=== PATIENT | female | born 1995 | race Hispanic/Latino ===

== ENCOUNTER 2023-06-28 19:24 | Emergency (ER) | payer SELFPAY ==
--- NOTE | 2023-06-28 19:46 | EDPHYS ---
Physician Documentation [facility] Name: Lissett Novak Age: 27 yrs Sex: Female : 1995 Arrival Date: 06/28/2023 Time: 19:24 Bed 10 Private MD: ED Physician Paulino Harrison HPI: 06/27 19:38 This 27 yrs old Female presents to ER via Unassigned with complaints of kb Toothache. 19:38 Pt is a 27 year old female who presents for toothache that started a couple of weeks kb ago. States she has a broken tooth with exposed nerve that has been causing the pain. Went to the dentist 2 weeks ago and was given amoxicillin and ibuprofen, but pain persists. Has appt for follow up with dentist next week. Historical: - Allergies: 19:53 No Known Allergies; pf1 - PMHx: 19:53 None; pf1 - PSHx: 19:53 Cholecystectomy; pf1 - Immunization history:: Adult Immunizations not up to date, Client reports receiving the 1st dose of the Covid vaccine, Last tetanus immunization: > 10 years ago Flu vaccine is not up to date. - Infectious Disease History:: Denies. - Social history:: Smoking status: Reported history of juuling and/or vaping. Patient uses alcohol, only on a social basis. Patient/guardian denies using street drugs. ROS: 19:42 Constitutional: As per HPI kb Exam: 19:42 Constitutional: This is a well developed, well nourished patient who is awake, alert, kb and in no acute distress. Head/Face: Normocephalic, atraumatic. Cardiovascular: Regular rate Respiratory: Respirations even and unlabored. No increased work of breathing. Talking in full sentences Skin: Warm, dry with normal turgor. Normal color. MS/ Extremity: Pulses equal, no cyanosis. Neurovascular intact. Full, normal range of motion. Neuro: Awake and alert, GCS 15, oriented to person, place, time, and situation. Moves all extremities. Normal gait. 19:42 ENT: Dental exam: pain, that is severe, specifically in the lower left second molar (#18), Vital Signs: 19:48 BP 136 / 87; Pulse 83; Resp 16; Temp 98.3; Pulse Ox 100% ; Weight 81.65 kg; Height 5 pf1 ft. 2 in. ; Pain 10/10; 19:48 Body Mass Index 32.92 (81.65 kg, 157.48 cm) pf1 19:48 Pain Scale: Adult pf1 MDM: 19:27 Patient medically screened. kb 19:42 Differential diagnosis: dental caries, gingivitis, dental abscess. Data reviewed: vital kb signs, nurses notes. Historians other than the Patient: Family Member: boyfriend. Counseling: I had a detailed discussion with the patient and/or guardian regarding the historical points, exam findings, and any diagnostic results supporting the discharge/admit diagnosis, the need for outpatient follow up, a dentist, to return to the emergency department if symptoms worsen or persist or if there are any questions or concerns that arise at home. Administered Medications: 19:53 Drug: Derby PO 10 mg-325 mg 1 tabs PO once Route: PO; mb9 19:58 Follow up: Response: No adverse reaction; Marked relief of symptoms; Pain is decreased; pf1 RASS: Alert and Calm (0) 19:54 Not Given (Other Intervention Used): [id number] mg IVP once mb9 19:54 Drug: Ketorolac IM 15 mg IM once Route: IM; Site: right deltoid; mb9 19:58 Follow up: Response: No adverse reaction; Marked relief of symptoms pf1 Disposition Summary: 06/28/23 19:45 Discharge Ordered Notes: Location: Home kb Condition: Stable kb Diagnosis - Toothache kb Followup: kb - With: Emergency Department - When: As needed - Reason: Worsening of condition Followup: kb - With: Private Physician - When: 2 - 3 days - Reason: Recheck today's complaints, Continuance of care, Re-evaluation by your physician Discharge Instructions: - Discharge Summary Sheet kb - Dental Pain, [id number] kb - Tooth Injuries, [id number] kb Forms: - Medication Reconciliation Form kb - Antibiotic Education kb - Prescription Opioid Use kb - Patient Portal Instructions kb - Leadership Thank You Letter kb Prescriptions: - Diclofenac Sodium 75 mg Oral tablet, delayed release (enteric coated) - take 1 tablet ORAL route 2 times per day As needed; 30 tablet; Refills: 0, kb Product Selection Permitted Signatures: Summer Beltran, CHRIS MATHEWS-Millie José RN RN mb9 Lux, Elham, RN RN pf1
[2023-06-28] MEDS ORDERED: HYDROCODONE/APAP 10/325 TAB ONE (19:49)
[2023-06-28] MEDS ORDERED: KETOROLAC 30 MG/ML INJ ONE (19:49)
--- NOTE | 2023-06-28 19:59 | ER ---
Nurse's Notes [facility] Name: Lissett Novak Age: 27 yrs Sex: Female : 1995 Arrival Date: 06/28/2023 Time: 19:24 Bed 10 Private MD: Diagnosis: Toothache Presentation: 06/27 19:48 Chief complaint: Patient states: left bottom tooth pain of 10,onset 3 weeks ago. pf1 Patient stated has a follow up with a dentist in two weeks. Coronavirus screen: Vaccine status: Patient reports receiving the 1st dose of the Covid vaccine. Client denies travel out of the [place] in the last 14 days. At this time, the client does not indicate any symptoms associated with coronavirus-19. Ebola Screen: Patient negative for fever greater than or equal to 101.5 degrees Fahrenheit, and additional compatible Ebola Virus Disease symptoms. Initial Sepsis Screen: Does the patient meet any 2 criteria? No. Patient's initial sepsis screen is negative. Does the patient have a suspected source of infection? No. Patient's initial sepsis screen is negative. Risk Assessment: Do you want to hurt yourself or someone else? Patient reports no desire to harm self or others. Onset of symptoms was June 07, 2023. 19:48 Method Of Arrival: Ambulatory pf1 19:48 Acuity: ELEN 5 pf1 Triage Assessment: 19:54 General: Appears in no apparent distress. uncomfortable, well groomed, well developed, pf1 Behavior is cooperative, appropriate for age, anxious, quiet. Pain: Complains of pain in lower left second molar (#18) Pain currently is 10 out of 10 on a pain scale. EENT: Reports pain in lower left second molar (#18) Pain is 10 out of 10 on a pain scale. Neuro: No deficits noted. Level of Consciousness is awake, alert, obeys commands, Oriented to person, place, time, situation. Cardiovascular: No deficits noted. Capillary refill < 3 seconds Patient's skin is warm and dry. Respiratory: No deficits noted. Airway is patent Respiratory effort is even, unlabored, Respiratory pattern is regular, symmetrical, Breath sounds are clear bilaterally. GI: No deficits noted. No signs and/or symptoms were reported involving the gastrointestinal system. : No deficits noted. No signs and/or symptoms were reported regarding the genitourinary system. Derm: No deficits noted. No signs and/or symptoms reported regarding the dermatologic system. Musculoskeletal: No deficits noted. No signs and/or symptoms reported regarding the musculoskeletal system. Historical: - Allergies: 19:53 No Known Allergies; pf1 - PMHx: 19:53 None; pf1 - PSHx: 19:53 Cholecystectomy; pf1 - Immunization history:: Adult Immunizations not up to date, Client reports receiving the 1st dose of the Covid vaccine, Last tetanus immunization: > 10 years ago Flu vaccine is not up to date. - Infectious Disease History:: Denies. - Social history:: Smoking status: Reported history of juuling and/or vaping. Patient uses alcohol, only on a social basis. Patient/guardian denies using street drugs. Screenin:54 [facility] ED Fall Risk Assessment (Adult) History of falling in the last 3 months, mb9 including since admission No falls in past 3 months (0 pts) Confusion or Disorientation No (0 pts) Intoxicated or Sedated No (0 pts) Impaired Gait No (0 pts) Mobility Assist Device Used No (0 pt) Altered Elimination No (0 pt) Score/Fall Risk Level 0 - 2 = Low Risk Oriented to surroundings, Maintained a safe environment, Educated pt \T\ family on fall prevention, incl call for assistance when getting out of bed. Abuse screen: Denies threats or abuse. Nutritional screening: No deficits noted. Tuberculosis screening: No symptoms or risk factors identified. Assessment: 19:56 Reassessment: see triage assessment. pf1 Vital Signs: 19:48 BP 136 / 87; Pulse 83; Resp 16; Temp 98.3; Pulse Ox 100% ; Weight 81.65 kg; Height 5 pf1 ft. 2 in. ; Pain 10/10; 19:48 Body Mass Index 32.92 (81.65 kg, 157.48 cm) pf1 19:48 Pain Scale: Adult pf1 ED Course: 19:26 Patient arrived in ED. im 19:27 Summer Beltran FNP-C is PHCP. kb 19:27 Paulino Harrison MD is Attending Physician. kb 19:45 Arm band placed on right wrist. pf1 19:47 Millie Hung RN is Primary Nurse. mb9 19:52 Triage completed. pf1 19:54 Adult w/ patient. Client placed on continuous cardiac and pulse oximetry monitoring. mb9 NIBP monitoring applied. 19:54 No provider procedures requiring assistance completed. Patient did not have IV access mb9 during this emergency room visit. 19:59 Provided Education on: prescription. pf1 Administered Medications: 19:53 Drug: Pioneer PO 10 mg-325 mg 1 tabs PO once Route: PO; mb9 19:58 Follow up: Response: No adverse reaction; Marked relief of symptoms; Pain is decreased; pf1 RASS: Alert and Calm (0) 19:54 Not Given (Other Intervention Used): [id number] mg IVP once mb9 19:54 Drug: Ketorolac IM 15 mg IM once Route: IM; Site: right deltoid; mb9 19:58 Follow up: Response: No adverse reaction; Marked relief of symptoms pf1 Medication: 19:55 VIS not applicable for this client. mb9 Outcome: 19:45 Discharge ordered by . kb 19:58 Discharged to home ambulatory, with family, pf1 19:58 Condition: stable 19:58 Discharge instructions given to patient, family, Instructed on discharge instructions, follow up and referral plans. Demonstrated understanding of instructions, follow-up care, medications, Prescriptions given X 1, 19:59 Patient left the ED. pf1 Signatures: Summer Beltran, CHRIS MATHEWS-Millie José RN RN mb9 Elham Lux RN RN pf1 Shakila Green
[2023-06-28 20:10] VITALS: BP 136/87; TEMP 98.3; O2SAT 100
== END 2023-06-28 19:59 | disposition home or self-care (01) ==
LOC: ER 19:24
DX: K08.89 Other specified disorders of teeth and supporting structures (principal)
CPT/HCPCS: 96372; 99284

== ENCOUNTER 2024-07-03 08:46 | Emergency (ER) | payer SELFPAY ==
--- OUTSIDE RECORDS SUMMARY | 2024-07-03 08:50 | XMS REPORT | Continuity of Care Document ---
Author Name Unknown Address [address] [facility] [facility] [address] [place] [address] Organization [facility] [place] Address [address] [facility] [facility] [address] [place] [address] Care Team Providers Care Meter Installer Name Role Phone Ursula HAYES, Sera Primary Care Physician HAM ZAMBRANO Attending Clinician Unavail able HAM ZAMBRANO Attending Clinician Unavail able Ham Zambrano MD Attending Clinician [phone] MATEUS ABDI Attending Clinician Unavailable MATEUS ABDI Attending Clinician Unavailable Mateus Abdi DO Attending Clinician [phone] LEEANNA DAMON Attending Clinician Unavailab Leeanna Potter DO Attending Clinician [phone] Nanda Brady MD Attending Clinician NANDA BRADY Attending Clinician Unavailabl e Problems Condition Name Condition Details Condition Category Status Onset Date Resolution Date Last Treatment Date Treating Clinician Comments Source No known active problems No known active problems Disease [facility] Allergies, Adverse Reactions, Alerts Allergy Name Allergy Type Status Severity Reaction(s) Onset Date Inactive Date Treating Clinician Comments Source NO KNOWN ALLERGIE S Drug Class Active [facility] Social History Social Habit Start Date Stop Date Quantity Comments Source Sexual orientation U [facility] Exposure to SARS-CoV-2 (event) 2022-03-27 00:00:00 2022-04-06 12:26:00 Not sure [facility] Sex assigned at 1995 00:00:00 1995 00:00:00 [facility] Smoking Status Start Date Stop Date Source Tobacco smoking consumption unknown [facility] Medications Ordered Medication Name Filled Medication Name Start Date Stop Date Current Medication? Ordering Clinician Indication Dosage Frequency Signature (SIG) Comments Components Source benzonatate 200 mg capsule 04-09 00:00: 00 Yes 1mg Kenyon Upton ciprofloxac in 0.3 %-dexametha sone 0.1 % ear drops,suspe nsion 04-09 00:00: 00 Yes 1% Kenyon Upton amoxicillin 875 mg-potasszohreh castelan clavulanate 125 mg tablet 04-09 00:00: 00 Yes 1mg Kenyon Upton ondansetron (ZOFRAN-ODT ) disintegrat ing tablet 4 mg 04-03 22:45: 00 04-03 22:35 :00 No 4mg 4 mg, Oral, ONCE, 1 dose, On Sat04/03/24 at 1645, Routine [facility] loperamide (IMODIUM A-D) capsule 4 mg 04-03 22:45: 00 04-03 22:35 :00 No 4mg 4 mg, Oral, ONCE NOW, 1 dose, On Sat04/03/24 at 1645, Routine [facility] dicyclomine (BENTYL) tablet 20 mg 04-03 22:00: 00 04-03 22:35 :00 No 20mg 20 mg, Oral, ONCE, 1 dose, On Sat04/03/24 at 1600, ELROY [facility] dicyclomine 20 mg tablet 04-03 00:00: 00 Yes [id number] 20mg Take 1 tablet by mouth 4 (four) times daily as needed for Abdominal pain. [facility] ondansetron 4 mg disintegrat ing tablet 04-03 00:00: 00 Yes [id number] 4mg Take 1 tablet by mouth every 8 (eight) hours as needed for Nausea and Vomiting (N/V). [facility] amoxicillin 500 mg capsule 2023-02 2-17 00:00: 00 02-11 05:59 :00 No [id number] 500mg Take 1 capsule by mouth in the morning and 1 capsule at noon and 1 capsule in the evening. Do all this for 7 days. [facility] NaCl 0.9% (NS) bolus infusion 1,000 mL 10-01 02:00: 00 10-01 02:33 :00 No 1000mL at 999 mL/hr, 1,000 mL, IV Infusion, ONCE, 1 dose, On Sat10/01/23 at 2100, [facility] ondansetron (ZOFRAN (PF)) injection 4 mg 10-01 01:15: 00 10-01 01:28 :00 No 4mg 4 mg, Slow IV Push, ONCE, 1 dose, On Sat10/01/23 at 2014, [facility] acetaminoph en (TYLENOL) tablet 1,000 mg 10-01 01:15: 00 10-01 01:28 :00 No 1000mg 1,000 mg, Oral, ONCE, 1 dose, On Sat10/01/23 at 2014, [facility] ketorolac (TORADOL) injection 15 mg 10-01 01:05: 00 10-01 01:28 :00 No 15mg 15 mg, Slow IV Push, ONCE, 1 dose, On Sat10/01/23 at 2014, Routine [facility] ibuprofen 600 mg tablet 09-30 00:00: 00 Yes [id number] 600mg Take 1 tablet by mouth every 6 (six) hours as needed for Pain (scale 4-6) for up to 30 doses. [facility] nirmatrelvi r-ritonavir (PAXLOVID) 150-100 mg tablet 09-30 00:00: 00 Yes [id number] 2{tbl} Take 2 tablets by mouth in the morning and 2 tablets in the evening. [facility] penicillin g benzathine (BICILLIN L-A) injection 1.2 Million Units 04-06 19:30: 00 04-06 19:32 :00 No 1.210 1.2 Million Units, Intramuscu lar, ONCE, 1 dose, On Sat04/06/22 at 1330, ELROY
Re ason for Anti-Infec tive: Documented Infection< br>Documen jake Infection Site: HEENT
D uration of Therapy: Other (see Comments) [facility] dexamethaso ne sod phos PF injection 10 mg 04-06 18:30: 00 04-06 18:57 :00 No 10mg 10 mg, Intramuscu lar, ONCE, 1 dose, On Sat04/06/22 at 1230, 1 mL [facility] albuterol 90 mcg/actuati on inhaler 2021-02 0 00:00: 00 Yes [id number] 9104 2{puff} Inhale 2 Puffs every 4 (four) hours as needed for Wheezing or Shortness of Breath. [facility] erythromyci n 5 mg/gram (0.5 %) ophthalmic ointment 2021-02 00:00: 00 Yes [id number] 9104 .5[in_u s] Place 0.5 Inches in both eyes 4 (four) times daily. Continue until you follow up with eye doctor. [facility] amoxicillin -clavulanat e 875-125 mg per tablet 2021-02 00:00: 00 12-22 04:59 :00 No [id number] 9104 1{tbl} Take 1 tablet by mouth in the morning and 1 tablet in the evening. Do all this for 10 days. [facility] predniSONE 20 mg tablet 2021-02 00:00: 00 12-17 04:59 :00 No [id number] 9104 40mg Take 2 tablets by mouth every morning for 5 days. [facility] butalbital- acetaminoph en-caff (ESGIC) 50-325-40 mg tablet 07-25 00:00: 00 Yes 1{tbl} Take 1 tablet by mouth every 4 (four) hours as needed for Headache. [facility] Vital Signs Vital Name Observation Time Observation Value Comments S ource Oxygen saturation in Arterial blood by Pulse oximetry 2024-04-03 23:57:34 100 /min [facility] Systolic blood pressure 2024-04-03 23:57:34 119 mm[Hg] [facility] Diastolic blood pressure 2024-04-03 23:57:34 76 mm[Hg] [facility] Heart rate 2024-04-03 23:57:34 56 /min [facility] Body temperature 2024-04-03 23:57:34 36.83 [place] [facility] Respiratory rate 2024-04-03 23:57:34 16 /min [facility] Body height 2024-04-03 21:55:[address] [facility] Body weight 2024-04-03 21:55:[address] [facility] BMI 2024-04-03 21:55:00 44.92 kg/m2 [facility] Systolic blood pressure 2024-02-04 20:16:00 146 mm[Hg] [facility] Diastolic blood pressure 2024-02-04 20:16:00 111 mm[Hg] [facility] Heart rate 2024-02-04 20:16:00 95 /min [facility] Body temperature 2024-02-04 20:16:00 37 [place] [facility] Respiratory rate 2024-02-04 20:16:00 16 /min [facility] Body height 2024-02-04 20:16:[address] [facility] Body weight 2024-02-04 20:16:[address] [facility] BMI 2024-02-04 20:16:00 43.46 kg/m2 [facility] Oxygen saturation in Arterial blood by Pulse oximetry 2024-02-04 20:16:00 100 /min [facility] Systolic blood pressure 2023-10-02 03:22:00 122 mm[Hg] [facility] Diastolic blood pressure 2023-10-02 03:22:00 64 mm[Hg] [facility] Heart rate 2023-10-02 03:22:00 83 /min [facility] Body temperature 2023-10-02 03:22:00 37.39 [place] [facility] Respiratory rate 2023-10-02 03:22:00 16 /min [facility] Oxygen saturation in Arterial blood by Pulse oximetry 2023-10-02 03:22:00 97 /min [facility] Body height 2023-10-02 00:56:00 152.4 cm [facility] Body weight 2023-10-02 00:56:[address] [facility] BMI 2023-10-02 00:56:00 44.04 kg/m2 [facility] Systolic blood pressure 2022-04-06 18:25:00 142 mm[Hg] [facility] Diastolic blood pressure 2022-04-06 18:25:00 74 mm[Hg] [facility] Heart rate 2022-04-06 18:25:00 83 /min [facility] Body temperature 2022-04-06 18:25:00 37.39 [place] [facility] Respiratory rate 2022-04-06 18:25:00 16 /min [facility] Body height 2022-04-06 18:25:[address] [facility] Body weight 2022-04-06 18:25:[address] [facility] BMI 2022-04-06 18:25:00 35.15 kg/m2 [facility] Oxygen saturation in Arterial blood by Pulse oximetry 2022-04-06 18:25:00 100 /min [facility] Systolic blood pressure 2021-12-11 18:12:00 146 mm[Hg] [facility] Diastolic blood pressure 2021-12-11 18:12:00 104 mm[Hg] [facility] Heart rate 2021-12-11 18:12:00 89 /min [facility] Body temperature 2021-12-11 18:12:00 37.06 [place] [facility] Respiratory rate 2021-12-11 18:12:00 18 /min [facility] Body height 2021-12-11 18:12:[address] [facility] Body weight 2021-12-11 18:12:[address] [facility] BMI 2021-12-11 18:12:00 39.06 kg/m2 [facility] Oxygen saturation in Arterial blood by Pulse oximetry 2021-12-11 18:12:00 98 /min [facility] Heart Rate 2024-04-09 09:59:00 96.00 /min Pia Upton Respiratory Rate 2024-04-09 09:59:00 Kenyon Upton BP Systolic 2024-04-09 09:59:00 130 mm[Hg] Navin Upton BP Diastolic 2024-04-09 09:59:00 86 mm[Hg] David Upton Weight Measured 2024-04-09 09:59:00 235.60 pounds Kenyon Upton Height Measured 2024-04-09 09:59:00 62.44 inches Kenyon Upton Body Temperature 2024-04-09 09:59:00 99.00 degrees Kenyon Dominique Upton Procedures Procedure Date / Time Performed Performing Clinicia n Source POCT TEST 2024-02-04 20:40:00 Ham Zambrano [facility] URINALYSIS 2023-10-02 02:29:00 Mateus Abdi [facility] COMP. METABOLIC PANEL ([id number]) 2023-10-02 01:24:00 Mateus Abdi [facility] CBC WITH DIFF 2023-10-02 01:24:00 Mateus Abdi [facility] RAPID STREP SCREEN FOR GROUP A 2023-10-02 01:24:00 Mateus Abdi [facility] INFLUENZA A/B RSV COVID NAAT 2023-10-02 01:24:00 Jin Mateus [facility] RAPID STREP SCREEN FOR GROUP A 2022-04-06 18:56:00 Leeanna Damon [facility] CONSENT/REFUSAL FOR DIAGNOSIS AND TREATMENT 2022-04-06 18:23:01 Doctor Unassigned, [place] [facility] RAPID INFLUENZA A/B 2021-12-11 18:35:00 Benigno Brady S [facility] COVID-19 (ID NOW RAPID TESTING) 2021-12-11 18:35:00 Nanda Brady [facility] CONSENT/REFUSAL FOR DIAGNOSIS AND TREATMENT 2021-12-11 18:02:10 Doctor Unassigned, [place] [facility] Encounters Start Date/Time End Date/Time Encounter Type Admission Type Attending [facility] Care Department Encounter ID Source 2024-06-05 13:40:37 2024-06-05 13:40:[address] [facility] [id number] Kenyon Upton 2024-04-09 09:55:25 2024-04-09 09:55:[address] [facility] [id number] Kenyon Upton 2024-04-09 00:00:00 2024-04-09 00:00:[address] [facility] [id number] Kenyon Upton 2024-04-03 15:59:00 2024-04-03 18:02:00 Emergency X HAM ZAMBRANO JOSEPH PRSHIVANI ERT [id number] [facility] 2024-04-03 15:59:00 2024-04-03 18:02:00 Emergency Ham Zambrano AT [facility] 1..840.114 350.1.13.10 4.2.7.2.686 [id number] [facility] 2024-02-04 14:19:00 2024-02-04 15:00:00 Emergency X HAM ZAMBRANO JOSEPH PRSHIVANI ERT [id number] [facility] 2024-02-04 14:19:00 2024-02-04 15:00:00 Emergency Ham Zambrano AT [facility] 1..840.114 350.1.13.10 4.2.7.2.686 [id number] [facility] 2023-10-01 19:59:00 2023-10-01 22:29:00 Emergency MATEUS KRISHNAMURTHY TIMOTHY [facility] ERT [id number] [facility] 2023-10-01 19:59:00 2023-10-01 22:29:00 Emergency Mateus Abdi [facility] AT [facility] 1.2.840.114 350.1.13.10 4.2.7.2.686 [id number] [facility] 2023-06-27 16:11:54 2023-06-27 16:11:[address] [facility] [id number] Kenyon Upton 2022-04-06 12:27:00 2022-04-06 13:53:00 Emergency ALEXIS WALKERRA [facility] ERT [id number] [facility] 2022-04-06 12:27:00 2022-04-06 13:53:[address] [facility] 1.2.840.114 350.1.13.10 4.2.7.2.686 [id number] [facility] 2021-12-11 13:13:00 2021-12-11 15:14:[address] [facility] 1.2.840.114 350.1.13.10 4.2.7.2.686 [id number] [facility] 2021-12-11 13:13:00 2021-12-11 15:14:00 Emergency X NANDA BRADY [facility] ERT [id number] [facility] Results Test Description Test Time Test Comments Results Result Co mments [facility][id number][facility]2023-10-02 02:06:07* Test Item Value Reference Range Interpretation Comme nts NA (test code = 9612912356) 137 mmol/L 135-145 K (test code = 3283850961) 4.1 mmol/L 3.5-5.0 CL (test code = 3649912855) 99 mmol/L 98-108 CO2 TOTAL (test code = 3943759413) 26 mmol/L 23-31 AGAP (test code = 1135469570) 12 2-16 BUN (test code = 8530247137) 12 mg/dL 7-23 GLUCOSE (test code = 7131298394) 100 mg/dL 70-110 CREATININE (test code = 2160-0) 0.80 mg/dL 0.50-1.04 TOTAL BILI (test code = 4724617326) 0.5 mg/dL 0.1-1.1 CALCIUM (test code = 5881903561) 9.5 mg/dL 8.6-10.6 T PROTEIN (test code = 6526093437) 8.2 g/dL 6.3-8.2 ALBUMIN (test code = 9594232188) 4.8 g/dL 3.5-5.0 ALK PHOS (test code = 6195081318) 75 U/L 34-122 ALTv (test code = 1742-6) 45 U/L 5-35 H AST(SGOT) (test code = 8653925346) 34 U/L 13-40 eGFR (test code = 44518-0) 103.7 mL/min/1.73m2 CKD-EPI eGFR (2020). Assuming creatinine has been stable day-to-day for at least three months, the eGFR indicates Category G1 (>= 90 mL/min/1.73 m2) Lab Interpretation (test code = 64635-8) Abnormal [facility] WITH [id number] 01:49:43* Test Item Value Reference Range Interpretation Comme nts WBC (test code = 6690-2) 9.11 4.30-11.10 RBC (test code = 789-8) 4.62 3.93-5.25 HGB (test code = 718-7) 13.9 g/dL 11.6-15.0 HCT (test code = 4544-3) 41.9 % 35.7-45.2 MCV (test code = 787-2) 90.7 fL 80.6-95.5 MCH (test code = 785-6) 30.1 pg 25.9-32.8 MCHC (test code = 786-4) 33.2 g/dL 31.6-35.1 RDW-SD (test code = 20814-9) 40.4 fL 39.0-49.9 RDW-CV (test code = 788-0) 12.3 % 12.0-15.5 PLT (test code = 777-3) 263 166-358 MPV (test code = 36959-1) 10.8 fL 9.5-12.9 NRBC/100 WBC (test code = 9260102547) 0.0 0.0-10.0 NRBC x10^3 (test code = 3861578153) See_Comment [Automated messa ge] The system which generated this result transmitted reference range: 10*3/?L. The reference range was not used to interpret this result as normal/abnormal. GRAN MAT (NEUT) % (test code = 770-8) 82.9 % IMM GRAN % (test code = 3348856278) 0.30 % LYMPH % (test code = 736-9) 9.5 % MONO % (test code = 5905-5) 5.6 % EOS % (test code = 713-8) 1.3 % BASO % (test code = 706-2) 0.4 % GRAN MAT x10^3(ANC) (test code = 5576265947) 7.54 10*3/uL 1.88-7.09 H IMM GRAN x10^3 (test code = 4133199084) 0.03 10*3/uL 0.00-0.06 LYMPH x10^3 (test code = 731-0) 0.87 10*3/uL 1.32-3.29 L MONO x10^3 (test code = 742-7) 0.51 10*3/uL 0.33-0.92 EOS x10^3 (test code = 711-2) 0.12 10*3/uL 0.03-0.39 BASO x10^3 (test code = 704-7) 0.04 10*3/uL 0.01-0.07 Lab Interpretation (test code = 07403-8) Abnormal [facility] Notes Date/Time Note Provider Source [facility]yon Fox[facility]isa [facility]2025-02-14 18:01:09 Patient given discharge instructions on diarrhea. Given prescriptions X 2 for zofran and bentyl. Advised to follow up with pcp. Pt left ER ambulatory, no signs of distress. SIGNAL MECHANIC [id number] 15:54:01 C/o multiple episodes of diarrhea and epigastric pain x1 day Denies fever, nausea, and vomiting SIGNAL MECHANIC Dottie Caldwell [id number] 15:50:00 [facility] Emergency Department Note Patient Name: Lissett Novak Date of : 1995 28 year old female [facility] Primary Care Physician: PATIENT DOES NOT HAVE A PCP Patient Escorted by: Self [9] Mode of Arrival: Personal means [1] EMS Treatment Prior to ED Arrival: ANNEALER treatment: None Travel and Exposure Screening: Symptoms Does patient have any of these symptoms?: (not recorded) Exposure Screening Has patient had contact with someone with a communicable disease in the last month?: (not recorded) Diseases exposed to:: (not recorded) Is Patient ?: (not recorded) Exposure Date: (not recorded) Chief Complaint: Chief Complaint Patient presents with Diarrhea History of Present Illness: Very pleasant lady presents for diarrhea and abdominal cramping starting this morning. Denies fever, blood in stool, vomiting. No current cramping. History provided by: Patient Past Medical History/Immunizations: No past medical history on file. Tetanus received in last 5 years: Unknown Childhood immunizations: Up-to-date Allergies: No Known Allergies Past Social History: Substance & Sexual Activity No substance use or sexual activity history on file. Past Surgical History: No past surgical history on file. Review of Systems: Review of Systems Constitutional: Negative for activity change, appetite change, chills, diaphoresis, fatigue and fever. HENT: Negative for congestion, ear discharge, ear pain, facial swelling, hearing loss, sore throat, tinnitus, trouble swallowing and voice change. Eyes: Negative for photophobia, pain, discharge, redness, itching and visual disturbance. Respiratory: Negative for apnea, cough, choking, chest tightness, shortness of breath and stridor. Breasts: Negative for discharge. Cardiovascular: Negative for chest pain, palpitations and leg swelling. Gastrointestinal: Positive for abdominal pain and diarrhea. Negative for abdominal distention, blood in stool, nausea and vomiting. Genitourinary: Negative for dysuria, frequency, hematuria, flank pain, enuresis and difficulty urinating. Musculoskeletal: Negative for arthralgias, back pain, gait problem, joint swelling, myalgias, neck pain and neck stiffness. Skin: Negative for color change, pallor, rash and wound. Neurological: Negative for dizziness, syncope, facial asymmetry, speech difficulty, weakness, light-headedness and headaches. Psychiatric/Behavioral: Negative for agitation, confusion, hallucinations and self-injury. The patient is not nervous/anxious. Hematological: Negative for adenopathy, cold intolerance and heat intolerance. Does not bruise/bleed easily. Endocrine: Negative for cold intolerance, heat intolerance, polydipsia and polyphagia. Physical Exam: ED Triage Vitals Weight 04/03/24 1555 104.3 kg (230 lb) Actual or estimated 04/03/24 1555 Actual Height 04/03/24 1555 1.524 m (5') BP 04/03/24 1557 (!) 140/78 Pulse 04/03/24 1555 78 Resp 04/03/24 1555 18 Temp 04/03/24 1555 37.1 ?C (98.8 ?F) Temp source 04/03/24 1555 Oral SpO2 04/03/24 1555 100 % Measured on 04/03/24 1555 Room air Physical Exam Constitutional: General: She is not in acute distress. Appearance: She is well-developed. She is not diaphoretic. HENT: Head: Normocephalic and atraumatic. Right Ear: External ear normal. Left Ear: External ear normal. Eyes: General: No scleral icterus. Right eye: No discharge. Left eye: No discharge. Neck: Trachea: No tracheal deviation. Cardiovascular: Rate and Rhythm: Normal rate and regular rhythm. Heart sounds: Normal heart sounds. Pulmonary: Effort: Pulmonary effort is normal. No respiratory distress. Breath sounds: Normal breath sounds. No stridor. No wheezing or rales. Chest: Chest wall: No tenderness. Abdominal: General: There is no distension. Palpations: Abdomen is soft. Tenderness: There is no abdominal tenderness. There is no guarding. Musculoskeletal: General: No tenderness or deformity. Normal range of motion. Cervical back: Normal range of motion and neck supple. Skin: General: Skin is warm. Coloration: Skin is not pale. Findings: No erythema or rash. Neurological: Mental Status: She is alert and oriented to person, place, and time. Cranial Nerves: No cranial nerve deficit. Motor: No abnormal muscle tone. Coordination: Coordination normal. Psychiatric: Behavior: Behavior normal. Thought Content: Thought content normal. Judgment: Judgment normal. Radiology: No orders to display Lab Results: Lab Results - No data to display EKG: If EKG completed, see Procedure Note. Orders and Treatments: No orders of the defined types were placed in this encounter. Orders Placed This Encounter Medications loperamide (IMODIUM A-D) capsule 4 mg ondansetron (ZOFRAN-ODT) disintegrating tablet 4 mg dicyclomine (BENTYL) tablet 20 mg dicyclomine 20 mg tablet ondansetron 4 mg disintegrating tablet First Provider Eval: ED Events Date/Time Event User Comments 04/03/241554 Medical Screening Begins HAM ZAMBRANO MD -- 04/03/24 155 First Provider Evaluation HAM ZAMBRANO MD -- ED COURSE Diagnosis/Impression as of 04/03/24 1751 Diarrhea, unspecified type Procedures: Procedures MDM: Medical Decision Making DDx incl viral v bacterial enteritis, food poisoning, functional diarrhea, et al. Pt well-appearing and w/o severe diarrhea or s/sx of entero-invasive infection. Pt symptomatically improved after ER meds and motivated for d/c Risk Prescription drug management. Flowsheet Documentation: Disposition/Condition: ED Disposition ED Disposition Discharge Condition Stable Comment -- Discharge Medications: Patient's Medications START taking these medications DICYCLOMINE 20 MG TABLET Take 1 tablet by mouth 4 (four) times daily as needed for Abdominal pain. ONDANSETRON 4 MG DISINTEGRATING TABLET Take 1 tablet by mouth every 8 (eight) hours as needed for Nausea and Vomiting (N/V). CONTINUE taking these medications which have NOT CHANGED ALBUTEROL 90 MCG/ACTUATION INHALER Inhale 2 Puffs every 4 (four) hours as needed for Wheezing or Shortness of Breath. AFMRUQVKAP-CWXATSMKDNRRV-KEJM (ESGIC) 50-325-40 MG TABLET Take 1 tablet by mouth every 4 (four) hours as needed for Headache. ERYTHROMYCIN 5 MG/GRAM (0.5 %) OPHTHALMIC OINTMENT Place 0.5 Inches in both eyes 4 (four) times daily. Continue until you follow up with eye doctor. IBUPROFEN 600 MG TABLET Take 1 tablet by mouth every 6 (six) hours as needed for Pain (scale 4-6) for up to 30 doses. NIRMATRELVIR-RITONAVIR (PAXLOVID) 150-100 MG TABLET Take 2 tablets by mouth in the morning and 2 tablets in the evening. START taking Modified Medications as Prescribed No medications on file STOP taking these medications No medications on file Follow-up: Electronically signed by: Ham Zambrano MD 04/03/241750 [facility]2024-12-17 14:58:08 Pt given printed and verbal discharge instructions regarding pain, dental, encouraged hydration, 1 Prescriptions provided Discussed antibiotic therapy and to take until all completed unless adverse reaction occurs - if occurs, discontinue medication and follow up with pcp/seek medical attention Pt verbalized understanding of instructions, pt awake alert oriented, resp reg unlabored, skin w/d, color appropriate for race, moves all ext well,pt encouraged to follow up with pcp Advised to seek medical attention for new/prolonged/worsening of symptoms, Symptoms improved. Awake, alert oriented, resp reg unlabored, skin w/d, pt leaving amb with steady gait, in no apparent distress, [facility]i [id number] 14:13:03 Pt arrived ambulatory for right ear pain x1week, denies drainage or fever. Pt c/o broken tooth on lower right side. SIGNAL MECHANIC Cari Taveras [facility] - [id number] 14:06:00 [facility] Emergency Department Note Patient Name: Lissett Novak Date of : 1995 28 year old female Treatment Room: Room/bed info not found Primary Care Physician: PATIENT DOES NOT HAVE A PCP Patient Escorted by: Self [9] Mode of Arrival: Personal means [1] EMS Treatment Prior to ED Arrival: Travel and Exposure Screening: Symptoms Does patient have any of these symptoms?: (not recorded) Exposure Screening Has patient had contact with someone with a communicable disease in the last month?: (not recorded) Diseases exposed to:: (not recorded) Is Patient ?: (not recorded) Exposure Date: (not recorded) Chief Complaint: Chief Complaint Patient presents with Tooth Pain Ear Pain History of Present Illness: Very pleasant young lady presents for right pre-auricular pain w/ radiation to right lower posterior molar pain where she reports a "cracked tooth". Pt denies congestion, ear discharge, change in hearing, sore throat. History provided by: Patient Past Medical History/Immunizations: No past medical history on file. Allergies: No Known Allergies Past Social History: Substance & Sexual Activity No substance use or sexual activity history on file. Past Surgical History: No past surgical history on file. Review of Systems: Review of Systems Constitutional: Negative for activity change, appetite change, chills, diaphoresis, fatigue and fever. HENT: Positive for dental problem and ear pain. Negative for congestion, ear discharge, facial swelling, hearing loss, sore throat, tinnitus, trouble swallowing and voice change. Eyes: Negative for photophobia, pain, discharge, redness, itching and visual disturbance. Respiratory: Negative for apnea, cough, choking, chest tightness, shortness of breath and stridor. Breasts: Negative for discharge. Cardiovascular: Negative for chest pain, palpitations and leg swelling. Gastrointestinal: Negative for abdominal distention, abdominal pain, blood in stool, diarrhea, nausea and vomiting. Genitourinary: Negative for dysuria, frequency, hematuria, flank pain, enuresis and difficulty urinating. Musculoskeletal: Negative for arthralgias, back pain, gait problem, joint swelling, myalgias, neck pain and neck stiffness. Skin: Negative for color change, pallor, rash and wound. Neurological: Negative for dizziness, syncope, facial asymmetry, speech difficulty, weakness, light-headedness and headaches. Psychiatric/Behavioral: Negative for agitation, confusion, hallucinations and self-injury. The patient is not nervous/anxious. Hematological: Negative for adenopathy, cold intolerance and heat intolerance. Does not bruise/bleed easily. Endocrine: Negative for cold intolerance, heat intolerance, polydipsia and polyphagia. Physical Exam: ED Triage Vitals [02/04/24 1416] Weight 104.3 kg (230 lb) Actual or estimated Estimated by patient/family report Height 1.549 m (5' 1") BP (!) 146/111 Pulse 95 Resp 16 Temp 37 ?C (98.6 ?F) Temp source Oral SpO2 100 % Measured on Room air Physical Exam Constitutional: General: She is not in acute distress. Appearance: She is well-developed. She is not diaphoretic. HENT: Head: Normocephalic and atraumatic. Right Ear: Tympanic membrane, ear canal and external ear normal. There is no impacted cerumen. Left Ear: Tympanic membrane, ear canal and external ear normal. There is no impacted cerumen. Nose: No congestion or rhinorrhea. Mouth/Throat: Comments: Right lower posterior molar w/ central cavity w/o sig gingival swelling Eyes: General: No scleral icterus. Right eye: No discharge. Left eye: No discharge. Conjunctiva/sclera: Conjunctivae normal. Pupils: Pupils are equal, round, and reactive to light. Neck: Vascular: No carotid bruit. Trachea: No tracheal deviation. Cardiovascular: Rate and Rhythm: Normal rate and regular rhythm. Heart sounds: Normal heart sounds. Pulmonary: Effort: Pulmonary effort is normal. No respiratory distress. Breath sounds: Normal breath sounds. No stridor. Abdominal: General: There is no distension. Tenderness: There is no abdominal tenderness. There is no guarding. Musculoskeletal: General: No tenderness or deformity. Normal range of motion. Cervical back: Normal range of motion and neck supple. No rigidity or tenderness. Lymphadenopathy: Cervical: No cervical adenopathy. Skin: General: Skin is warm. Coloration: Skin is not pale. Findings: No erythema or rash. Neurological: Mental Status: She is alert and oriented to person, place, and time. Motor: No abnormal muscle tone. Psychiatric: Behavior: Behavior normal. Thought Content: Thought content normal. Judgment: Judgment normal. Radiology: No orders to display Lab Results: Lab Results POCT TEST - Normal Result Value Ref Range POCT PREG Negative On board controls acceptable with C Line Yes POCT PREG LOT # HCG [id number] POCT PREG TEST DATE 01/26/2025 EKG: If EKG completed, see Procedure Note. Orders and Treatments: Orders Placed This Encounter Procedures POCT Test Orders Placed This Encounter Medications amoxicillin 500 mg capsule First Provider Eval: ED Events Date/Time Event User Comments 02/04/24 1410 Medical Screening Begins HAM ZAMBRANO MD -- 02/04/24 141 First Provider Evaluation HAM ZAMBRANO MD -- ED COURSE Diagnosis/Impression as of 02/04/24 1445 Pain, dental Procedures: Procedures MDM: Medical Decision Making Pt evaluated for AOM, AOE, malignant otitis, TMJ, cervical LAD, dental cavity, gingivitis, or other acute issue. Pt w/o focal findings of ear, jaw, throat, face, except right posterior lower molar cavity and TTP; symptoms c/w referred dental pain +/- apical infection. D/w pt rec plan of care, f/u, and red flags for return. Amount and/or Complexity of Data Reviewed Labs: ordered. Flowsheet Documentation: Disposition/Condition: ED Disposition ED Disposition Discharge Condition Stable Comment -- Discharge Medications: Patient's Medications START taking these medications AMOXICILLIN 500 MG CAPSULE Take 1 capsule by mouth in the morning and 1 capsule at noon and 1 capsule in the evening. Do all this for 7 days. CONTINUE taking these medications which have NOT CHANGED ALBUTEROL 90 MCG/ACTUATION INHALER Inhale 2 Puffs every 4 (four) hours as needed for Wheezing or Shortness of Breath. RFFTYRIVTO-OLWZTBBRYIVQD-PJTW (ESGIC) 50-325-40 MG TABLET Take 1 tablet by mouth every 4 (four) hours as needed for Headache. ERYTHROMYCIN 5 MG/GRAM (0.5 %) OPHTHALMIC OINTMENT Place 0.5 Inches in both eyes 4 (four) times daily. Continue until you follow up with eye doctor. IBUPROFEN 600 MG TABLET Take 1 tablet by mouth every 6 (six) hours as needed for Pain (scale 4-6) for up to 30 doses. NIRMATRELVIR-RITONAVIR (PAXLOVID) 150-100 MG TABLET Take 2 tablets by mouth in the morning and 2 tablets in the evening. START taking Modified Medications as Prescribed No medications on file STOP taking these medications No medications on file Follow-up: Electronically signed by: Ham Zambrano MD 02/04/24 1445 [id number] Pt given printed and verbal discharge instructions regarding covid and fever Prescriptions provided Discussed ibuprofen and to take with food to avoid GI distress. Pt verbalized understanding of instructions, pt awake alert oriented, resp reg unlabored, skin w/d, color appropriate for race, moves all ext well,pt encouraged to follow up with pcp Advised to seek medical attention for new/prolonged/worsening of symptoms, No adverse reaction to meds given in ER noted upon discharge PIV d'cd, dressing to site, catheter in tact. Awake, alert oriented, resp reg unlabored, skin w/d, pt leaving amb with steady gait, in no apparent distress, Cedric Mccurdy [id number] 19:53:26 Patient arrived via WC to ED c/o sore throat, body aches, and being cold that started this AM. No medications taken ANNEALER. Patient denies being around anyone sick. Jose Bo [id number] 19:41:00 [facility] Emergency Department Note Patient Name: Lissett Novak Date of : 1995 27 year old female Treatment Room: [place] [address] Primary Care Physician: PATIENT DOES NOT HAVE A PCP Patient Escorted by: Family [5] Mode of Arrival: Personal means [1] EMS Treatment Prior to ED Arrival: ANNEALER treatment: None Travel and Exposure Screening: Symptoms Does patient have any of these symptoms?: (not recorded) Exposure Screening Has patient had contact with someone with a communicable disease in the last month?: (not recorded) Diseases exposed to:: (not recorded) Is Patient ?: (not recorded) Exposure Date: (not recorded) Chief Complaint: Chief Complaint Patient presents with Fever Body Aches History of Present Illness: Complains of fever, muscle aches, body aches and sore throat for 1 day. Activity is increased the patient's symptoms and nothing seems to resolve the symptoms. There is been decreased overall oral intake related and decreased appetite. There is no related abdominal pain, diarrhea or vomiting. History provided by: Patient Past Medical History/Immunizations: History reviewed. No pertinent past medical history. Tetanus received in last 5 years: Unknown Allergies: No Known Allergies Past Social History: Substance & Sexual Activity No substance use or sexual activity history on file. Past Surgical History: History reviewed. No pertinent surgical history. Review of Systems: Review of Systems Constitutional: Positive for activity change, appetite change, chills and fever. HENT: Positive for sore throat. Negative for congestion, ear pain and hearing loss. Eyes: Negative for photophobia, discharge, redness and visual disturbance. Respiratory: Negative for cough, chest tightness, wheezing and stridor. Cardiovascular: Negative for chest pain and palpitations. Gastrointestinal: Negative for abdominal pain, diarrhea, nausea and vomiting. Genitourinary: Negative for urgency, frequency and difficulty urinating. Musculoskeletal: Positive for arthralgias, back pain and myalgias. Negative for neck pain and neck stiffness. Skin: Negative for color change and rash. Neurological: Positive for headaches. Negative for weakness. Physical Exam: ED Triage Vitals [10/01/231955] Weight 102.3 kg (225 lb 8 oz) Actual or estimated Actual Height 1.524 m (5') BP (!) 131/103 Pulse 121 Resp 18 Temp 39 ?C (102.2 ?F) Temp source Oral SpO2 100 % Measured on Room air Physical Exam Vitals reviewed. Constitutional: Appearance: She is obese. She is ill-appearing. HENT: Head: Normocephalic and atraumatic. Right Ear: Tympanic membrane and external ear normal. Left Ear: Tympanic membrane and external ear normal. Mouth/Throat: Mouth: Mucous membranes are moist. Pharynx: Oropharynx is clear. No posterior oropharyngeal erythema. Eyes: General: No scleral icterus. Extraocular Movements: Extraocular movements intact. Conjunctiva/sclera: Conjunctivae normal. Pupils: Pupils are equal, round, and reactive to light. Cardiovascular: Rate and Rhythm: Regular rhythm. Tachycardia present. Pulses: Normal pulses. Heart sounds: No murmur heard. No friction rub. Pulmonary: Effort: Pulmonary effort is normal. Breath sounds: Normal breath sounds. No rhonchi or rales. Abdominal: General: Bowel sounds are normal. Palpations: Abdomen is soft. There is no mass. Tenderness: There is no abdominal tenderness. There is no right CVA tenderness, left CVA tenderness, guarding or rebound. Musculoskeletal: General: No swelling, tenderness or signs of injury. Cervical back: Neck supple. No tenderness. Right lower leg: No edema. Left lower leg: No edema. Lymphadenopathy: Cervical: No cervical adenopathy. Skin: General: Skin is warm and dry. Findings: No rash. Neurological: General: No focal deficit present. Mental Status: She is alert and oriented to person, place, and time. Cranial Nerves: No cranial nerve deficit. Motor: No weakness. Psychiatric: Mood and Affect: Mood normal. Behavior: Behavior normal. Thought Content: Thought content normal. Judgment: Judgment normal. Radiology: No orders to display Lab Results: Lab Results CBC WITH DIFF - Abnormal Result Value Ref Range WBC 9.11 4.30 - 11.10 10*3/?L RBC 4.62 3.93 - 5.25 10*6/?L HGB 13.9 11.6 - 15.0 g/dL HCT 41.9 35.7 - 45.2 % MCV 90.7 80.6 - 95.5 fL MCH 30.1 25.9 - 32.8 pg MCHC 33.2 31.6 - 35.1 g/dL RDW-SD 40.4 39.0 - 49.9 fL RDW-CV 12.3 12.0 - 15.5 % PLT 263 166 - 358 10*3/?L MPV 10.8 9.5 - 12.9 fL NRBC/100 WBC 0.0 0.0 - 10.0 /100 WBCs NRBC x103<0.01 10*3/?L GRAN MAT (NEUT) % 82.9 % IMM GRAN % 0.30 % LYMPH % 9.5 % MONO % 5.6 % EOS % 1.3 % BASO % 0.4 % GRAN MAT x103(ANC) 7.54 (*) 1.88 - 7.09 10*3/uL IMM GRAN x1030.03 0.00 - 0.06 10*3/uL LYMPH x1030.87 (*) 1.32 - 3.29 10*3/uL MONO x1030.51 0.33 - 0.92 10*3/uL EOS x1030.12 0.03 - 0.39 10*3/uL BASO x1030.04 0.01 - 0.07 10*3/uL COMP. METABOLIC PANEL (11267) - Abnormal NA 137 135 - 145 mmol/L K 4.1 3.5 - 5.0 mmol/L CL 99 98 - 108 mmol/L CO2 TOTAL 26 23 - 31 mmol/L AGAP 12 2 - 16 BUN 12 7 - 23 mg/dL GLUCOSE 100 70 - 110 mg/dL CREATININE 0.80 0.50 - 1.04 mg/dL TOTAL BILI 0.5 0.1 - 1.1 mg/dL CALCIUM 9.5 8.6 - 10.6 mg/dL T PROTEIN 8.2 6.3 - 8.2 g/dL ALBUMIN 4.8 3.5 - 5.0 g/dL ALK PHOS 75 34 - 122 U/L ALTv 45 (*) 5 - 35 U/L AST(SGOT) 34 13 - 40 U/L eGFR 103.7 mL/min/1.73m2 URINALYSIS - Abnormal APPEARANCE Hazy (*) Clear COLOR Yellow Yellow PH 6.0 4.8 - 8.0 SP GRAVITY 1.014 1.003 - 1.030 GLU U QUAL Normal Normal BLOOD Negative Negative KETONES Negative Negative PROTEIN Negative Negative UROBILIN Normal Normal BILIRUBIN Negative Negative NITRITE Negative Negative LEUK LINDSAY Negative Negative RBC/HPF <1 0 - 3 HPF WBC/HPF 1 0 - 5 HPF BACTERIA Few (*) Negative MUCOUS Slight (*) Negative LPF SQ EPITH 10 HPF INFLUENZA A/B RSV COVID NAAT - Abnormal Influenza A NAAT Negative Negative Influenza B NAAT Negative Negative RSV by PCR Negative Negative SARS-CoV-2 NAAT Positive (*) Negative RAPID STREP SCREEN FOR GROUP A - Normal Molecular Strep Negative Negative THROAT CULTURE LAB ONLY SARS-COV-2 SEQUENCING EKG: If EKG completed, see Procedure Note. Orders and Treatments: Orders Placed This Encounter Procedures CBC WITH DIFF COMP. METABOLIC PANEL (76735) URINALYSIS Influenza A B RSV COVID NAAT RAPID STREP SCREEN FOR GROUP A Throat Culture Lab Only COVID Interpretation Lab Only Sars-Cov-2 Sequencing Orders Placed This Encounter Medications NaCl 0.9% (NS) bolus infusion 1,000 mL acetaminophen (TYLENOL) tablet 1,000 mg ondansetron (ZOFRAN (PF)) injection 4 mg ketorolac (TORADOL) injection 15 mg ibuprofen 600 mg tablet nirmatrelvir-ritonavir (PAXLOVID) 150-100 mg tablet First Provider Eval: ED Events Date/Time Event User Comments 10/01/232002 Medical Screening Begins MATEUS ABDI DO -- 10/01/232002 First Provider Evaluation MATEUS ABDI DO -- ED COURSE Diagnosis/Impression as of 10/01/23 2210 Fever in adult COVID-19 virus infection Procedures: Procedures MDM: Medical Decision Making Patient was evaluated for the complaint of Fever and Body Aches Diagnoses considered but not limited to: Fever Influenza RSV Strep Upper Respiratory Infection Viral Syndrome. UTI Labs:were ordered, and resulted, any relevant abnormalities were considered. Imaging:Was not ordered Procedures:were not performed. History, physical exam findings, results of visit, diagnosis, medication regimens and plan of future care have been considered. Additional MDM may be found in the ED course. Vital signs were rechecked before final disposition and determined to be stable. Amount and/or Complexity of Data Reviewed Labs: ordered. Decision-making details documented in ED Course. Risk OTC drugs. Prescription drug management. Flowsheet Documentation: Scoring Tools: No data recorded Disposition/Condition: ED Disposition ED Disposition Disch - Home Condition Stable Comment -- Discharge Medications: Patient's Medications START taking these medications IBUPROFEN 600 MG TABLET Take 1 tablet by mouth every 6 (six) hours as needed for Pain (scale 4-6) for up to 30 doses. NIRMATRELVIR-RITONAVIR (PAXLOVID) 150-100 MG TABLET Take 2 tablets by mouth in the morning and 2 tablets in the evening. CONTINUE taking these medications which have NOT CHANGED ALBUTEROL 90 MCG/ACTUATION INHALER Inhale 2 Puffs every 4 (four) hours as needed for Wheezing or Shortness of Breath. THJNFXDCXK-TYLIHAJXTKVMG-VGAQ (ESGIC) 50-325-40 MG TABLET Take 1 tablet by mouth every 4 (four) hours as needed for Headache. ERYTHROMYCIN 5 MG/GRAM (0.5 %) OPHTHALMIC OINTMENT Place 0.5 Inches in both eyes 4 (four) times daily. Continue until you follow up with eye doctor. START taking Modified Medications as Prescribed No medications on file STOP taking these medications No medications on file Follow-up: Contact information for follow-up your doctro Electronically signed by: Mateus Abdi DO 10/01/23 0822 [facility]
[2024-07-03 10:26] LABS: Specific Gravity > 1.030 (1.005-1.030)
[2024-07-03 10:28] LABS: Specific Gravity > 1.030 (1.005-1.030); Sqamous Epithelial >50 /HPF (None Seen); Urine Bacteria <20 /HPF (<20); Urine Bilirubin NEGATIVE (Negative); Urine Blood Trace (Negative); Urine Clarity Extremely Turbid (Clear); Urine Color Yellow (Yellow); Urine Glucose TRACE (Negative); Urine Ketones TRACE (Negative); Urine Micro Reflex YN NO BILL MICROSCOPIC; Urine Mucus 2+ /HPF (None Seen); Urine Nitrite NEGATIVE (Negative); Urine Protein 1+ (Negative); Urine Urobilinogen Normal (Normal); Urine WBC 20-50 /HPF (<5); Urine Yeast (Budding) Few /HPF (None Seen)
--- NOTE | 2024-07-03 11:09 | ER ---
Nurse's Notes [facility] Name: Lissett Novak Age: 28 yrs Sex: Female : 1995 Arrival Date: 07/03/2024 Time: 08:46 Bed 12 Private MD: Diagnosis: UTI/ Urinary tract infection, site not specified;Vulvovaginal candidiasis Presentation: 07/03 09:13 Chief complaint: Burning with urination and vulvar itching x 1 week. Coronavirus hb screen: At this time, the client does not indicate any symptoms associated with coronavirus-19. Ebola Screen: No symptoms or risks identified at this time. Initial Sepsis Screen: Does the patient meet any 2 criteria? No. Patient's initial sepsis screen is negative. Does the patient have a suspected source of infection? No. Patient's initial sepsis screen is negative. Risk Assessment: Do you want to hurt yourself or someone else? Patient reports no desire to harm self or others. Onset of symptoms was June 26, 2024. 09:13 Method Of Arrival: Ambulatory hb 09:13 Acuity: ELEN 4 hb Triage Assessment: 09:14 General: Appears in no apparent distress. Behavior is calm, cooperative. Pain: Pain. hb Neuro: Level of Consciousness is awake, alert, obeys commands, Oriented to person, place, time, situation. Cardiovascular: Patient's skin is warm and dry. Respiratory: Respiratory effort is even, unlabored, Respiratory pattern is regular, symmetrical. : Reports burning with urination, vaginal itching. Historical: - Allergies: 09:14 No Known Allergies; hb - Home Meds: 09:14 None [Active]; hb - PMHx: 09:14 None; hb - PSHx: 09:14 Cholecystectomy; hb - Immunization history:: Adult Immunizations up to date. - Infectious Disease History:: Denies. - Social history:: Smoking status: Patient denies any tobacco usage or history of. - Family history:: not pertinent. Screenin:16 [facility] ED Fall Risk Assessment (Adult) History of falling in the last 3 months, hb including since admission No falls in past 3 months (0 pts) Confusion or Disorientation No (0 pts) Intoxicated or Sedated No (0 pts) Impaired Gait No (0 pts) Mobility Assist Device Used No (0 pt) Altered Elimination No (0 pt) Score/Fall Risk Level 0 - 2 = Low Risk Oriented to surroundings, Maintained a safe environment, Educated pt \T\ family on fall prevention, incl call for assistance when getting out of bed. Abuse screen: Denies threats or abuse. Denies injuries from another. Nutritional screening: No deficits noted. Tuberculosis screening: No symptoms or risk factors identified. Assessment: 09:16 General: See triage assessment . hb Vital Signs: 09:13 BP 128 / 80; Pulse 88; Resp 16; Temp 99(O); Pulse Ox 100% on R/A; Pain 4/10; hb 09:13 Pain Scale: Adult hb ED Course: 08:51 Patient arrived in ED. gl 09:14 Triage completed. hb 09:14 Arm band placed on. hb 09:16 Patient has correct armband on for positive identification. Bed in low position. Call hb light in reach. Provided Education on: bathroom location . 09:18 Corby Tovar MD is Attending Physician. rt 11:23 No provider procedures requiring assistance completed. Patient did not have IV access hb during this emergency room visit. Administered Medications: 11:24 Drug: Fluconazole PO 200 mg PO once Route: PO; hb 11:24 Follow up: Response: Medication administered at discharge. hb Medication: 09:16 VIS not applicable for this client. hb Outcome: 11:09 Discharge ordered by . rt 11:24 Patient left the ED. hb Signatures: Veda Raphael, RN RN Corby Tovar MD MD rt Farheen Sullivan, Reg Reg gl
--- NOTE | 2024-07-03 11:09 | EDPHYS ---
Physician Documentation [facility] Name: Lissett Novak Age: 28 yrs Sex: Female : 1995 Arrival Date: 07/03/2024 Time: 08:46 Bed 12 Private MD: ED Physician Corby Tovar HPI: 07/03 11:13 This 28 yrs old Female presents to ER via Ambulatory with complaints of rt Urinary Problem. 11:13 Patient presents to the ED with burning with urination, dysuria, vaginal itching for rt about 1 week. Patient recently finished antibiotics for a dental procedure. Had a new sexual partner about 1 month ago. Denies symptoms following that. Denies of acute complaints at this time, symptoms are mild in severity, no other aggravating or alleviating factors.. Historical: - Allergies: :14 No Known Allergies; hb - Home Meds: :14 None [Active]; hb - PMHx: :14 None; hb - PSHx: 09:14 Cholecystectomy; hb - Immunization history:: Adult Immunizations up to date. - Infectious Disease History:: Denies. - Social history:: Smoking status: Patient denies any tobacco usage or history of. - Family history:: not pertinent. ROS: 11:13 Constitutional: Negative for fever, chills, and weight loss, Cardiovascular: Negative rt for chest pain, palpitations, and edema, Respiratory: Negative for shortness of breath, cough, wheezing, and pleuritic chest pain, Abdomen/GI: Negative for abdominal pain, nausea, vomiting, diarrhea, and constipation, Skin: Negative for injury, rash, and discoloration, Neuro: Negative for headache, weakness, numbness, tingling, and seizure, 11:13 : Positive for Vaginal itching, dysuria, Exam: 11:13 Constitutional: This is a well developed, well nourished patient who is awake, alert, rt and in no acute distress. Head/Face: Normocephalic, atraumatic. Chest/axilla: Normal chest wall appearance and motion. Nontender with no deformity. No lesions are appreciated. Cardiovascular: Regular rate and rhythm with a normal S1 and S2. No gallops, murmurs, or rubs. Normal PMI, no JVD. No pulse deficits. Respiratory: Lungs have equal breath sounds bilaterally, clear to auscultation and percussion. No rales, rhonchi or wheezes noted. No increased work of breathing, no retractions or nasal flaring. Abdomen/GI: Soft, non-tender, with normal bowel sounds. No distension or tympany. No guarding or rebound. No evidence of tenderness throughout. Skin: Warm, dry with normal turgor. Normal color with no rashes, no lesions, and no evidence of cellulitis. MS/ Extremity: Pulses equal, no cyanosis. Neurovascular intact. Full, normal range of motion. Neuro: Awake and alert, GCS 15, oriented to person, place, time, and situation. Cranial nerves II-XII grossly intact. Motor strength 5/5 in all extremities. Sensory grossly intact. Cerebellar exam normal. Normal gait. Vital Signs: 09:13 BP 128 / 80; Pulse 88; Resp 16; Temp 99(O); Pulse Ox 100% on R/A; Pain 4/10; hb 09:13 Pain Scale: Adult hb MDM: 09:22 Medical Screening Exam initiated rt 11:13 Differential Diagnosis Candidiasis, UTI. Data reviewed: vital signs, nurses notes, lab rt test result(s). Test considered but Not performed: CT: No clinical signs to suggest pyelonephritis, CT scan is not indicated. Counseling: I had a detailed discussion with the patient and/or guardian regarding the historical points, exam findings, and any diagnostic results supporting the discharge/admit diagnosis, lab results, the need for outpatient follow up, to return to the emergency department if symptoms worsen or persist or if there are any questions or concerns that arise at home. Response to treatment: the patient's symptoms have mildly improved after treatment. 07/03 09:29 Order name: UA W/ Microscopic; Complete Time: 10:56 rt 07/03 09:29 Order name: GC ([facility]/Chl) Probe URINE rt 07/03 09:29 Order name: Test, Urine; Complete Time: 10:56 rt Administered Medications: 11:24 Drug: Fluconazole PO 200 mg PO once Route: PO; hb 11:24 Follow up: Response: Medication administered at discharge. hb Disposition Summary: 07/03/24 11:09 Discharge Ordered Notes: Location: Home rt Problem: new rt Symptoms: are unchanged rt Condition: Stable rt Diagnosis - UTI/ Urinary tract infection, site not specified rt - Vulvovaginal candidiasis rt Followup: rt - With: Private Physician - When: 2 - 3 days - Reason: Discharge Instructions: - Discharge Summary Sheet rt - Urinary Tract Infection, Adult rt - Vaginal Yeast Infection, Adult rt Forms: - Medication Reconciliation Form rt - Antibiotic Education rt - Prescription Opioid Use rt - Patient Portal Instructions rt - Leadership Thank You Letter rt Prescriptions: - Fluconazole 200 mg Oral tablet - take 1 tablet ORAL route one time; 1 tablet; Refills: 0, Product Selection rt Permitted - cefpodoxime 200 mg Oral tablet - take 1 tablet ORAL route every 12 hours with food; 14 tablet; Refills: 0, rt Product Selection Permitted Signatures: Dispatcher [employer] EDMS Veda Raphael RN RN Corby Tomas MD MD rt Corrections: (The following items were deleted from the chart) 09: 09:29 UA W/ Microscopic+U.LAB.BRZ ordered. EDMS EDMS 09: 09:29 GC ([facility]/Chl) Probe URINE+R.LAB.BRZ ordered. EDMS EDMS 09: 09:29 Test, Urine+UC.LAB.BRZ ordered. EDMS EDMS
[2024-07-03] MEDS ORDERED: FLUCONAZOLE 100 MG TAB ONE (11:17)
[2024-07-03 11:28] VITALS: BP 128/80; TEMP 99; O2SAT 100
== END 2024-07-03 11:24 | disposition home or self-care (01) ==
LOC: ER 08:46
DX: N39.0 Urinary tract infection, site not specified (principal); B37.31 Acute candidiasis of vulva and vagina
CPT/HCPCS: 81001; 81025; 87490; 87590; 99282